=== PATIENT | male | born 1950 | race African-American/Black ===

== ENCOUNTER 2016-09-14 19:48 | Emergency (ER) | payer OTHER, MEDICARE ==
[2016-09-14 20:03] VITALS: BP 142/92; PULSE 75; RESP 16; TEMP 98.8; O2SAT 94
--- NOTE | 2016-09-14 20:20 | EDPHY ---
H & P Time Seen by Provider: 09/14/16 19:59 HPI/ROS: This patient sustained a laceration to the distal phalanx of the left 3rd finger shortly prior to arrival while at home while cutting a [place]. He reports moderate pain to the wound and reports some decreased sensation to the flap of skin distal to the wound. There is moderate bleeding that slowed with direct pressure. He cleaned it with water and then rubbing alcohol prior to coming in. He is accompanied by his girlfriend. ROS: Neuro: No other numbness besides what is mentioned in HPI. No difficulty moving the finger. Musculoskeletal: No bony pain. No other injuries. 5 point ROS is otherwise negative. Past Medical/Surgical History: Last tetanus 7 years ago. Smoking Status: Never smoked Physical Exam: Physical Exam Vital signs are normal. General: No acute distress Lungs: No respiratory distress. Cardiac: Brisk capillary refill is intact throughout. Pulses are 2+ and symmetric in the affected extremity. Skin: No rash or pallor. Extremities: Atraumatic normal except for left 3rd finger Left 3rd finger exam reveals a 1.5 cm full-thickness laceration with moderate bleeding. Subcutaneous tissues evident but no deeper structures are injured and no foreign bodies and direct examination. Neuro: Alert . Patient has loss of 2 point discrimination in the finger tip just distal to the laceration but is intact with 2 point discrimination on either side of the wound to the distal phalanx. No other sensorimotor deficits. Constitutional: Initial Vital Signs Temperature (C) 37.1 C 09/14/16 20:00 Heart Rate 75 09/14/16 20:00 Respiratory Rate 16 09/14/16 20:00 Blood Pressure 142/92 H 09/14/16 20:00 O2 Sat (%) 94 09/14/16 20:00 O2 Delivery Mode Room Air Allergies/Adverse Reactions: No Known Allergies Allergy (Unverified 09/14/16 20:03) Home Medications: Medication Instructions Recorded NK [No Known Home Meds] 09/14/16 MDM/Departure - MDM Procedures: Digital block: After verbal consent, using a 50 50 mix of 0.5% Marcaine 2% plain lidocaine, 27 gauge needle, chlorhexidine scrub under sterile conditions- 3 injections were administered to the base of the affected finger, 8 mL with good effect. Patient tolerated this well. There were no complications. The wound is 1.5 cm [id number]. The wound was copiously irrigated with saline. The wound was explored for foreign bodies and none were found. The wound was prepped and draped in the normal sterile fashion. The edges were reapproximated using 4 0 Prolene-6 running sutures with good hemostasis and cosmesis. The patient tolerated the procedure well. There were no complications. - Depart Disposition: Home, Routine, Self-Care Clinical Impression: Finger laceration Qualifiers: Encounter type: initial encounter Finger: ring finger Damage to nail status: unspecified Foreign body presence: without foreign body Laterality: left Qualified Code(s): S61.215A - Laceration without foreign body of left ring finger without damage to nail, initial encounter Condition: Good Instructions: Finger Laceration (ED) Additional Instructions: Diagnosis: Finger laceration Plan: Keep the wound clean and dry for the next 2 days, then clean daily with warm soapy water Ibuprofen Tylenol for discomfort if needed Return for suture removal in 10-12 days. Return sooner for redness, discharge or other concerns for infection. Referrals: NONE *PRIMARY CARE P,. [Primary Care Provider] - As per Instructions
== END 2016-09-14 21:00 | disposition home or self-care (01) ==
LOC: CED 19:48
PROC: 0HQGXZZ Repair Left Hand Skin, External Approach (ICD-10-PCS; principal; 2016-09-14)
DX: S61.213A Laceration without foreign body of left middle finger without damage to nail, initial encounter (principal); W26.0XXA Contact with knife, initial encounter; Y92.009 Unspecified place in unspecified non-institutional (private) residence as the place of occurrence of the external cause; Y99.8 Other external cause status; Y93.89 Activity, other specified